=== PATIENT | female | born 1975 | race Two or more races ===

== ENCOUNTER 2018-11-05 07:30 | Inpatient (IN) | payer OTHER ==
[~2018-11-05] VITALS: Ht 160 cm; Wt 4.1 kg
[2018-11-05] MEDS ORDERED: ASPIR 8181 MG PO (09:36)
[2018-11-05] MEDS ORDERED: IRON325 MG PO (09:36)
== END 2018-11-13 14:15 | disposition home or self-care (01) | DRG 785 ==
LOC: SURH 11-10 07:00 → OB/GYN 11-10 08:05 → O/R 11-10 08:05 → OB/GYN 11-10 15:46
PROVIDERS: ADMIT Obstetrics & Gynecology
PROC: 4A1HXCZ Monitoring of Products of Conception, Cardiac Rate, External Approach (ICD-10-PCS; 2018-11-10)
PROC: 0UT70ZZ Resection of Bilateral Fallopian Tubes, Open Approach (ICD-10-PCS; 2018-11-10)
PROC: 4A033R1 Measurement of Arterial Saturation, Peripheral, Percutaneous Approach (ICD-10-PCS; 2018-11-10)
PROC: 0UB90ZX Excision of Uterus, Open Approach, Diagnostic (ICD-10-PCS; 2018-11-10)
PROC: 10D00Z1 Extraction of Products of Conception, Low, Open Approach (ICD-10-PCS; principal; 2018-11-10 07:00)
DX: O36.63X0 Maternal care for excessive fetal growth, third trimester, not applicable or unspecified (principal); O34.211 Maternal care for low transverse scar from previous cesarean delivery; O75.82 Onset (spontaneous) of labor after 37 completed weeks of gestation but before 39 completed weeks gestation, with delivery by (planned) cesarean section; O26.893 Other specified pregnancy related conditions, third trimester; N80.0 Endometriosis of uterus; Z30.2 Encounter for sterilization; Z3A.40 40 weeks gestation of pregnancy; Z37.0 Single live birth